=== PATIENT | female | born 1965 | race Caucasian/White ===

== ENCOUNTER → 2017-11-20 08:41 | Outpatient (CLI) | payer MEDICAID, SELFPAY ==
[2017-11-24 03:08] LABS: Clam 3.45 kU/L (Class III); Codfish 0.14 kU/L (Class 0/I); Egg, White 0.13 kU/L (Class 0/I); Milk (Cow) 0.11 kU/L (Class 0/I); SCALLOP 2.14 kU/L (Class III); Shrimp 2.19 kU/L (Class III)
== END ==
PROVIDERS: Family Provider Family Medicine; PCP Family Medicine; Visit Provider Otolaryngology
DX: T78.04XA Anaphylactic reaction due to fruits and vegetables, initial encounter (principal)
CPT/HCPCS: 36415; 86003